=== PATIENT | male | born 1965 | race Caucasian/White ===

== ENCOUNTER 2022-10-15 09:43 | Outpatient (REF) | payer OTHER, SELFPAY ==
[2022-10-15 10:25] LABS: Hematocrit 42.4 % (42.0-52.0); Hemoglobin 12.8 g/dl (14.0-18.0); Mean Corpuscular HGB Conc 30.2 g/dl (31.0-36.0); Mean Corpuscular Hemoglobin 20.1 pg (27.0-33.0); Mean Corpuscular Volume 66.6 fL (80.0-98.0); Mean Platelet Volume 11.5 fL (9.4-12.4); Platelet Count 203 X10*3/uL (160-400); Red Blood Count 6.37 X10*6/uL (4.60-5.80); Red Cell Distribution Width 18.6 % (11.0-16.0); White Blood Count 6.1 X10*3/uL (4.8-10.8)
[2022-10-15 11:35] LABS: Alanine Aminotransferase 20 U/L (0-40); Albumin Level 4.4 g/dL (3.5-5.0); Alkaline Phosphatase 63 U/L (39-117); Anion Gap 14 (12-20); Aspartate Amino Transferase 16 U/L (5-37); Bilirubin Total 0.4 mg/dL (0.0-1.0); Blood Urea Nitrogen 16 mg/dL (9-16); Calcium 9.4 mg/dL (8.4-10.2); Carbon Dioxide 27 mmol/L (22-29); Chloride 105 mmol/L (96-108); Cholesterol 155 mg/dL; Estimated Glomerular Filt Rate > 60; Glucose Fasting 103 mg/dL (60-99); HDL Cholesterol 40 mg/dL; LDL Cholesterol Calculated 102 mg/dl; Potassium 4.5 mmol/L (3.3-5.1); Sodium 141 mmol/L (135-145); Total Protein 7.3 g/dL (6.5-8.0); Triglycerides 65 mg/dL
[2022-10-15 11:36] LABS: TSH reflex Free T4 0.87 uIU/mL (0.32-4.0)
== END 2022-10-15 09:44 | disposition home or self-care (01) ==
LOC: HO.LAB 09:43
PROVIDERS: PCP Hospitalist; Visit Provider Hospitalist
DX: Z00.00 Encounter for general adult medical examination without abnormal findings (principal)
CPT/HCPCS: 36415; 80053; 80061; 84443; 85027

== ENCOUNTER 2022-11-11 08:30 | Outpatient (REF) | payer OTHER, SELFPAY ==
[2022-11-11 08:39] LABS: MANUAL DIFF FLAG NO
[2022-11-11 09:17] LABS: Basophils Percent Auto 0.6 % (0-2); Eosinophils Absolute Auto 0.2 X10*3/uL (0.0-0.4); Eosinophils Percent Auto 2.4 % (0-4); Hematocrit 41.1 % (42.0-52.0); Hemoglobin 12.4 g/dl (14.0-18.0); Imm Gran Abs Auto 0.01 X10*3/uL (0.00-0.03); Imm Gran Pct Auto 0.2 % (0.0-0.4); Lymphocytes Absolute Auto 2.6 X10*3/uL (1.2-4.9); Lymphocytes Percent Auto 40.3 % (20-40); Mean Corpuscular HGB Conc 30.2 g/dl (31.0-36.0); Mean Corpuscular Hemoglobin 20.2 pg (27.0-33.0); Mean Corpuscular Volume 66.9 fL (80.0-98.0); Mean Platelet Volume 10.9 fL (9.4-12.4); Monocytes Absolute Auto 0.7 X10*3/uL (0.1-1.2); Monocytes Percent Auto 11.1 % (2-11); Neutrophils Absolute Auto 2.9 x10*3/uL (2.0-8.3); Neutrophils Percent Auto 45.4 % (45-73); Platelet Count 192 X10*3/uL (160-400); Red Blood Count 6.14 X10*6/uL (4.60-5.80); Red Cell Distribution Width 18.1 % (11.0-16.0); White Blood Count 6.4 X10*3/uL (4.8-10.8)
== END 2022-11-11 08:31 | disposition home or self-care (01) ==
LOC: HO.LAB 08:30
PROVIDERS: PCP Hospitalist; Visit Provider Hospitalist
DX: R89.9 Unspecified abnormal finding in specimens from other organs, systems and tissues (principal)
CPT/HCPCS: 36415; 85025

== ENCOUNTER 2022-11-27 11:33 | Outpatient (REF) | payer OTHER, SELFPAY ==
[2022-11-27 12:35] LABS: Iron 89 mcg/dL (45-160); Percent Iron Saturation 34 % (15-50); Total Iron Binding Capacity 258 mcg/dL (228-428); Unsaturated Iron Binding 169 ug/dL
[2022-11-27 13:23] LABS: Folate > 20.0 ng/mL (> or = 4.0); Vitamin B12 1607 pg/mL (200-900)
[2022-12-03 11:28] LABS: Vitamin C 1.2 mg/dL (0.2-2.1)
[2022-12-03 15:38] LABS: Vitamin D 25-OH, D2 <4 ng/mL; Vitamin D 25-OH, D3 24 ng/mL; Vitamin D 25-OH, Total 24 ng/mL (30-100)
== END 2022-11-27 11:34 | disposition home or self-care (01) ==
LOC: HO.LAB 11:33
PROVIDERS: PCP Hospitalist; Visit Provider Hospitalist
DX: D64.9 Anemia, unspecified (principal)
CPT/HCPCS: 36415; 82180; 82306; 82607; 82746; 83540

== ENCOUNTER 2023-08-26 11:38 | Outpatient (AMB) | payer OTHER, SELFPAY ==
--- NOTE | 2023-08-26 11:40 | MHC.OFFWIV ---
Intake Vital Signs 08/26/23 11:48 Weight 147 lb 2 oz BP 118/74 Blood Pressure Location Rt brachial Position Sitting Pulse 74 Pulse Source Pulse Oximeter Temp 97.8 F Temp Source Temporal Artery Scan Pulse Oximetry (%) 98 Intake Visit Reasons: EP STD prescription refill Intake Note: pt is here requesting valacyclovir due to herpes outbreak Patient Tobacco Use Status: Never used Tobacco Allergies No Known Allergies Allergy (Verified 08/26/23 12:33) Medication List - Last Reconciled 08/26/23 by Jose David Pablo MD acyclovir 400 mg PO BID cholecalciferol (vitamin D3) 1,250 mcg PO QWEEK miscellaneous medical supply methyl-life non methylated multivatime made without b a12 or folate as directed; multivitamin 1 tab PO DAILY Do you need a note to return to daycare/school/sports/work: Yes HPI EP STD prescription refill HPI Details 58-year-old male presents to the office for a sick visit. Patient is having an outbreak of herpes and is requesting a refill on acyclovir. Patient gets outbreaks once a year. Tingling sensation around the penis. PFSH Family History Other No family history of mental disorder Social History Household Members: Spouse Housing: House Alcohol intake: never Patient Tobacco Use Status: Never used Tobacco Physical Exam Vital Signs: Last Vital Signs Temp 97.8 F 08/26/23 11:48 Pulse 74 08/26/23 11:48 BP 118/74 08/26/23 11:48 Pulse Ox 98 08/26/23 11:48 Other: Penis: Erythematous lesion at the base of the glans penis. Assessment & Plan Assessment & Plan (1) Herpes simplex: Code(s): B00.9 - Herpesviral infection, unspecified Plan: Acyclovir called in. If symptoms do not improve to follow-up here. Medications: New acyclovir 400 mg PO BID 14 tabs 1RF Coding Level of Care Code Est Pt Level 3 (42463) Diagnoses Herpes simplex B00.9
[2023-08-26 11:48] VITALS: BP 118/74; PULSE 74; TEMP 36.6; O2SAT 98
== END 2023-08-26 12:40 | disposition home or self-care (01) ==
PROVIDERS: PCP Hospitalist; Visit Provider Internal Medicine
DX: B00.9 Herpesviral infection, unspecified (principal)
CPT/HCPCS: 99213

== ENCOUNTER 2023-11-19 10:25 | Outpatient (AMB) | payer OTHER, SELFPAY ==
--- NOTE | 2023-11-19 11:26 | MHC.OFFWIV ---
Intake Vital Signs 11/19/23 12:25 Height 5 ft 7 in Weight 149 lb BMI 23.3 BP 110/68 Blood Pressure Location Lt brachial Position Sitting Pulse 70 Pulse Source Pulse Oximeter Temp 98.0 F Temp Source Temporal Artery Scan Pulse Oximetry (%) 98 Oxygen Delivery Method Room Air Intake Visit Reasons: EST/sore throat(lobby masked) Intake Note: pt is here today for sore throat started friday Patient Tobacco Use Status: Never used Tobacco Allergies No Known Allergies Allergy (Verified 11/19/23 12:30) Do you need a note to return to daycare/school/sports/work: Yes HPI HPI Comments History of Present Illness Details Patient is a 58-year-old man in today for sick visit. PFSH Family History Other No family history of mental disorder Social History Household Members: Spouse Housing: House Alcohol intake: never Patient Tobacco Use Status: Never used Tobacco Physical Exam Vital Signs: Last Vital Signs Temp 98.0 F 11/19/23 12:25 Pulse 70 11/19/23 12:25 BP 110/68 11/19/23 12:25 Pulse Ox 98 11/19/23 12:25 Oxygen Delivery Method Room Air 11/19/23 12:25 BMI result Body Mass Index 23.3 Coding
[2023-11-19 12:25] VITALS: BP 110/68; PULSE 70; TEMP 36.7; O2SAT 98; BMI 23.3
--- NOTE | 2023-11-19 13:02 | AM.OFFWIN_ITS ---
Intake Vital Signs 11/19/23 12:25 Height 5 ft 7 in Weight 149 lb BMI 23.3 BP 110/68 Blood Pressure Location Lt brachial Position Sitting Pulse 70 Pulse Source Pulse Oximeter Temp 98.0 F Temp Source Temporal Artery Scan Pulse Oximetry (%) 98 Oxygen Delivery Method Room Air Intake Visit Reasons: EST/sore throat(lobby masked) Patient Tobacco Use Status: Never used Tobacco Allergies No Known Allergies Allergy (Verified 11/19/23 12:30) HPI EST/sore throat(lobby masked) HPI Details 58 year old male patient presents today with a several day history of throat pain, particularly at night. He has painful swallowing. He has tried some Tylenol and lozenges without relief. Denies any other upper respiratory symptoms. Denies fever or chills. PFSH Family History Other No family history of mental disorder Social History Household Members: Spouse Housing: House Alcohol intake: never Patient Tobacco Use Status: Never used Tobacco Review of Systems Const All systems reviewed & are unremarkable except as noted in HPI and below Physical Exam Vital Signs: Last Vital Signs Temp 98.0 F 11/19/23 12:25 Pulse 70 11/19/23 12:25 BP 110/68 11/19/23 12:25 Pulse Ox 98 11/19/23 12:25 Oxygen Delivery Method Room Air 11/19/23 12:25 BMI result Body Mass Index 23.3 Const General: cooperative and no acute distress HEENT Head: Yes normal to inspection Ears: hearing grossly normal bilaterally General nose exam: Normal external nose present and Normal nasal mucous membranes and turbinates present Face and sinus: Yes normal facial exam Mouth: Normal oral and palatal mucosa present Throat: Yes posterior oropharynx abnormal (tonsilar erythema, hypertrophy, exudate present) Neck Neck: Yes no lymphadenopathy Resp Effort & Inspection: normal respiratory effort Auscultation: clear to auscultation bilaterally Cardio Palpation: normal PMI Rate: regular rate Rhythm: regular rhythm Skin General skin exam: no rashes or lesions noted Extrem General: Yes capillary refill normal and Yes no clubbing, cyanosis or edema Psych Appearance: grossly normal Mental Status: mental status grossly normal Assessment & Plan Assessment & Plan (1) Pharyngitis: Code(s): J02.9 - Acute pharyngitis, unspecified Qualifiers: Pharyngitis/tonsillitis etiology: unspecified etiology Qualified Code(s): J02.9 - Acute pharyngitis, unspecified Plan: Patient's rapid strep in the office was negative however he has significant janina thema and tonsilar exudate. I am going to start him on abx and I recommended he continue to take Tylenol as needed for any pain/fever. I suggested otc lozenges/throat spray and warm salt-water gargles at home. If he does not improve with treatment or symptoms worsen he should return to the clinic for further evaluation. Patient agrees to plan. Medications: New penicillin V potassium 500 mg PO TID 30 tabs 1RF 10 days J02.0 - Streptococcal pharyngitis Coding Level of Care Code Est Pt Level 3 (56684) Diagnoses Pharyngitis, unspecified etiology J02.9 Pharyngitis/tonsillitis etiology: unspecified etiology
== END 2023-11-19 13:03 | disposition home or self-care (01) ==
PROVIDERS: PCP Hospitalist; Visit Provider Nurse Practitioner Family
DX: J02.9 Acute pharyngitis, unspecified (principal)
CPT/HCPCS: 87880; 99213